=== PATIENT | female | born 1945 | race Caucasian/White ===

== ENCOUNTER 2022-07-10 12:19 | Emergency (ER) | payer MEDICARE, SELFPAY ==
[2022-07-10] VITALS (21 sets, daily range): BP systolic 135–160; BP diastolic 63–91; PULSE 49–91; RESP 11–31; TEMP 36.3; O2SAT 92–99; BMI 22.3
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
[2022-07-10] MEDS: ONDANSETRON 4 MG/2 ML INJ IV (13:01)
[2022-07-10] MEDS: MORPHINE 4 MG/ML INJ IV (13:01)
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
[2022-07-10] MEDS: HYDROMORPHONE 1 MG INJ IV (13:58)
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
[2022-07-10] MEDS: diazePAM 5 MG TABLET PO (14:15)
[2022-07-10 14:32] LABS: COVID19 -Nasal RAPID POSITIVE (Negative)
[2022-07-10] MEDS: propofoL 200 MG/20 ML VIAL 60 MG IV (16:15)
--- NOTE | 2022-07-10 16:16 | DI.RAD.S_ITS ---
PROCEDURE: XR SHOULDER LT MIN 2V INDICATIONS: SP reduction TECHNIQUE: 2 views of the shoulder were acquired. COMPARISON: [facility], CT, CT UE LT WO CON, 07/10/2022, 14:18. [facility], CR, XR HUMERUS LT 2V, 07/10/2022, 13:17. [facility], CR, XR SHOULDER LT MIN 2V, 07/10/2022, 13:17. FINDINGS: Bones: Left shoulder has been successfully read located. There remains a comminuted fracture of the left humeral head, primarily involving the left greater trochanter. The visualized ribs appear intact. This study is performed with the benefit of general anesthesia. Please see the anesthesia record for additional detail. No suspicious lytic or blastic lesions are seen. Soft tissues: No suspicious soft tissue calcifications. The visualized lung demonstrates an unremarkable appearance. IMPRESSION: Left shoulder relocation. Left humeral head fracture. Dictated by: Bo Marrufo M.D. on 07/10/2022 at 15:47 Approved by: Bo Marrufo M.D. on 07/10/2022 at 15:47
== END 2022-07-10 17:35 | disposition home or self-care (01) ==
PROVIDERS: Emergency Provider Emergency Medicine
DX: S43.004A Unspecified dislocation of right shoulder joint, initial encounter (principal); V19.9XXA Pedal cyclist (driver) (passenger) injured in unspecified traffic accident, initial encounter; Z20.822 Contact with and (suspected) exposure to COVID-19
CPT/HCPCS: 23665; 36415; 73030; 73060; 73200; 87635; 96374; 96375; 99152; 99284; 99285; C9803; J1170; J2270; J2405; J2704